=== PATIENT | male | born 1975 | race African-American/Black ===

== ENCOUNTER 2016-11-01 07:22 | Emergency (ER) | payer OTHER ==
[~2016-11-01] VITALS: Ht 193 cm; Wt 112.9 kg
[~2016-11-01 07:22] MED LIST: ABILIFY5 M1 PO; CARVEDILOL6.25 M1 PO; COR3 PO; DILANTIN100 MG PO; LASIX40 MG PO; LIPI20 PO; LISINOPRIL20 MG PO; LOV40I SQ; METFORMIN ER500 M1 PO; MOTRIN800 MG; POTASSIUM CHLO20 ME1 PO; PRO30 PO; SEROQUEL XR400 M1 PO; SEROQUEL200 MG PO; XAN5 PO; XARELTO10 M1 PO
[2016-11-01 08:02] VITALS: BP 134/100
[2016-11-01 08:37] LABS: CALCIUM 8.7 mg/dL (8.5-10.1); CARBON DIOXIDE 28.8 mmol/L (21-32); CREATININE SERUM 1.4 mg/dL (0.7-1.3); POTASSIUM SERUM 4.3 mmol/L (3.5-5.1)
[2016-11-01 08:42] LABS: ALBUMIN 3.6 g/dL (3.4-5.0); BILIRUBIN TOTAL 0.21 mg/dL (0.20-1.00); TOTAL PROTEIN, SERUM 7.7 g/dL (6.4-8.2)
[2016-11-01 08:46] LABS: BASOPHIL % 0.4 % (0-2); PLATELET COUNT 171 x10^3mcL (130-400)
== END 2016-11-01 08:58 | disposition left against medical advice (07) ==
LOC: ED 07:22
PROVIDERS: Emergency Medicine
DX: I82.411 Acute embolism and thrombosis of right femoral vein (principal); E11.9 Type 2 diabetes mellitus without complications; E78.5 Hyperlipidemia, unspecified; I11.0 Hypertensive heart disease with heart failure; I50.9 Heart failure, unspecified; J45.909 Unspecified asthma, uncomplicated; F20.9 Schizophrenia, unspecified; D57.1 Sickle-cell disease without crisis; I25.10 Atherosclerotic heart disease of native coronary artery without angina pectoris; F17.210 Nicotine dependence, cigarettes, uncomplicated; Z88.0 Allergy status to penicillin; Z88.6 Allergy status to analgesic agent; Z88.8 Allergy status to other drugs, medicaments and biological substances
CPT/HCPCS: Q0092

== ENCOUNTER 2016-11-20 00:14 | Inpatient (IN) | payer OTHER ==
[~2016-11-20] VITALS: Ht 193 cm; Wt 114.8 kg
[2016-11-20] VITALS (7 sets, daily range): BP systolic 105–130; BP diastolic 74–92; Ht 193 cm; Wt 114.8 kg
--- NOTE | 2016-11-20 00:40 | NUR ---
PT CAME TO ED TODAY W/ COMPLAINT OF BLOOD IN STOOL AND VOMIT. PT STATES THAT HE WAS WALKING FROM [place] TO [place] AND BEGAN TO HAVE ABDOMINAL PAIN. HE HAD ONE BOWEL MOVEMENT THAT HAD BRIGHT RED BLOOD PRESENT. HE THEN CONTINUED WALKING, AND HAD TO STOP AGAIN AND HAD ANOTHER BOWEL MOVEMENT W/ BRIGHT RED BLOOD PRESENT WELL ONE EPISODE OF VOMITING W/ A SMALL AMOUNT ("LESS THAN A TEASPOON") OF BLOOD PRESENT. PT DENIES ANY DIZZINESS, CHEST PAIN, OR SOB. PT IS A&O X 4, BREATHING EVEN AN DUNLABORED, WITH NO VISUAL SIGNS OF ACUTE OR RESP DISTRESS NOTED. MSE COMPLETED BY DR JENSEN.
--- NOTE | 2016-11-20 00:43 | NUR ---
RADIOLOGY AT BEDSIDE FOR CXR.
--- NOTE | 2016-11-20 00:49 | NUR ---
LAB AT BEDSIDE FOR BLOOD DRAW.
--- NOTE | 2016-11-20 00:54 | NUR ---
RECTAL EXAM COMPLETED BY DR JENSEN. GUIAC TRACE POSITIVE.
[2016-11-20 01:15] LABS: BASOPHIL % 0.5 % (0-2); PLATELET COUNT 170 x10^3mcL (130-400)
--- NOTE | 2016-11-20 01:15 | NUR ---
REPORT GIVEN TO CONCHIS Greene RN, AND CARE ENDORSED FOR THIS PT.
[2016-11-20 01:20] LABS: RED CELL DISTRIBUTION WIDTH 19.7 % (11.5-14.5)
[2016-11-20 01:28] LABS: CARBON DIOXIDE 28.3 mmol/L (21-32); CHLORIDE SERUM 110 mmol/L (98-107); CREATININE SERUM 1.1 mg/dL (0.7-1.3); GFR1 > 60 mL/min; GLUCOSE SERUM 96 mg/dL (74-106); POTASSIUM SERUM 4.3 mmol/L (3.5-5.1); SODIUM SERUM 143 mmol/L (136-145)
[2016-11-20 01:32] LABS: ALKALINE PHOSPHATASE 90 U/L (46-116); ALT/SGPT 23 U/L (16-63); AST/SGOT 24 U/L (15-37); BILIRUBIN TOTAL 0.22 mg/dL (0.20-1.00); TOTAL PROTEIN, SERUM 6.7 g/dL (6.4-8.2)
[2016-11-20 01:37] LABS: ALBUMIN 3.2 g/dL (3.4-5.0)
--- NOTE | 2016-11-20 01:51 | NUR ---
US EXAM IN PROGRESS AT BEDSIDE
--- NOTE | 2016-11-20 02:03 | NUR ---
ATTEMPTS AT IV UNSUCCESSFUL. CHAPARRITA ROJAS AT BEDSIDE FOR IV ADMINISTRATION.
--- NOTE | 2016-11-20 02:06 | NUR ---
PT MEDICATED WITH PROTONIX IVP PER ORDER. PLEASE SEE EMAR.
[2016-11-20] MEDS ORDERED: SEROQUEL XR200 M1 PO (02:25)
--- NOTE | 2016-11-20 02:29 | NUR ---
MRSA SWAB OBTAINED AND SENT TO LAB
--- NOTE | 2016-11-20 02:48 | NUR ---
PT MEDICATED WITH MORPHINE AND ZOFRAN PER ORDER. PLEASE SEE EMAR.
--- NOTE | 2016-11-20 03:01 | NUR ---
REPORT CALLED TO SOHAIL ROJAS TO ASSUME CARE OF PT ON TELE.
[2016-11-20] MEDS ORDERED: CLOPIDOGREL75 M1 PO (03:14)
--- NOTE | 2016-11-20 03:23 | NUR ---
PT TRANSFERRED TO TELE
--- NOTE | 2016-11-20 04:00 | NUR ---
CARE ENDORSED TO SOHAIL ROJAS. ALL QUESTIONS AND CONCERNS ADDRESSED. PT ORIENTED TO ROOM AND SURROUNDINGS. CALL LIGHT WITHIN REACH, BED IN LOW POSITION. WILL CONTINUE TO MONITOR
[2016-11-20 04:06] LABS: CHOLESTEROL/HDL RATIO 3.3
--- NOTE | 2016-11-20 04:30 | NUR ---
RECEIVED PT IN BED, PT IS ORIENTED X3. SPEECH CLEAR. PT DOES NOT WANT TO BE BOTHERED AT THIS TIME. SEIZURE PRECAUTIONS ENFORCED. ISOLATION PRECAUTIONS ENFORCED FOR HISTORY OF MRSA. INSTRUCTED PT TO USE CALL LIGHT WHICH IS WITHIN REACH. BED IS IN LOWEST POSITION. WILL CONTINUE TO MONITOR CLOSELY.
[2016-11-20 04:31] LABS: FREE T4 0.93 ng/dL (0.76-1.46); FREE THYROXINE INDEX 1.9 ug/dL (1.4-4.5)
[2016-11-20 04:38] LABS: T3 TOTAL 1.15 ng/mL
--- NOTE | 2016-11-20 06:28 | NUR ---
FSBS IS 85. UNABLE TO FLUSH IV ACCESS, ATTEMPTING NEW IV PLACEMENT AT THIS TIME.
--- NOTE | 2016-11-20 06:36 | NUR ---
NEW IV TO LEFT HAND, MORPHINE GIVEN AT THIS TIME FOR 10/10 PAIN TO MID ABD. IV IS HL FOR NOW PER ORDERS. WILL ENDORSE TO INCOMING SHIFT.
--- NOTE | 2016-11-20 07:02 | NUR ---
RECEIVED REPORT FROM [facility] NURSE SAUCEDA AT THIS TIME. PATIENT RESTING IN BED, AWAKE. TELE #[address] ON ROOM AIR, NO DISTRESS NOTED. URINAL AT THE BEDSIDE. IV TO LEFT HAND SALINE LOCKED AT THIS TIME. DENIES PAIN. INSTRUCTED ON USE OF CALL LIGHT. WILL CONTINUE TO MONITOR.
--- NOTE | 2016-11-20 08:33 | NUR ---
ROUNDS MADE AT THIS TIME. DR. FRANCIS, RESIDENT TEAM, INSIDE SALES ASSISTANT, AND PRIMARY RN AT THE BEDSIDE. PLAN OF CARE IS DISCUSSED. QUESTIONS AND CONCERNS ADDRESSED. WILL CONTINUE TO MONITOR.
[2016-11-20 08:43] LABS: CALCIUM 8.3 mg/dL (8.5-10.1); CARBON DIOXIDE 30.6 mmol/L (21-32); CHLORIDE SERUM 110 mmol/L (98-107); CREATININE SERUM 1.2 mg/dL (0.7-1.3); GFR1 > 60 mL/min; GLUCOSE SERUM 126 mg/dL (74-106); POTASSIUM SERUM 3.8 mmol/L (3.5-5.1); SODIUM SERUM 144 mmol/L (136-145)
[2016-11-20 08:47] LABS: BASOPHIL % 0.6 % (0-2); PLATELET COUNT 178 x10^3mcL (130-400)
[2016-11-20 08:48] LABS: RED CELL DISTRIBUTION WIDTH 20.1 % (11.5-14.5)
--- NOTE | 2016-11-20 10:00 | NUR ---
NOTIFIED DR. JONES COREG 6.25 HELD HR [id number] AT THIS TIME.
--- NOTE | 2016-11-20 10:00 | NUR ---
PATIENT HAD MEDICATIONS AT THE BEDSIDE. TAKEN DOWN TO PHARMACY TO HOLD AT THIS TIME.
--- NOTE | 2016-11-20 10:20 | NUR ---
PATIENT HAD HOME MEDICATIONS AT THE BEDSIDE. MEDICATIONS TAKEN DOWN TO PHARMACY TO HOLD AT THIS TIME.
--- NOTE | 2016-11-20 18:20 | NUR ---
NOTIFIED DR. JONES GLUCMARCELO HELD DUE TO BLOOD GLUCOSE 82 AND ON A CLEAR LIQUID DIET.
--- NOTE | 2016-11-20 19:30 | NUR ---
RESUMED CARE FOR PT. RECEIVED REPORT FROM BOB GARCIA. REMINDED PT OF HIS PLAN OF CARE AND PREPARATIONS NEEDED FOR TOMORROW'S PROCEDURE. VERBALIZED UNDERSTANDING BUT INSISTING TO HAVE SPRITE AT THIS TIME. WILL HOLD PT NPO PAST MIDNIGHT. SAFETY MEASURES ENSURED. CALL LIGHT WITHIN REACH. WILL CONT TO MONITOR PT.
--- NOTE | 2016-11-20 19:53 | NUR ---
PT IS A/O X4, WITH FORGETFUL, ABLE TO TELL WHAT HE NEEDS. LUNG SOUND WHEEZING BILATERAL, NO COUGH, NO SOB, PT IS ON ROOM AIR, PO2 96%, PT IS ON TELE 19, SB, DENY ANY CHEST PAIN OR DISCOMFORT, BOWEL SOUND PRESENT ALL 4 QUADRANTS, NO DISTENTION, NO TENDER. PEDAL PULSE PRESENT BOTH FEET, NON PITTING EDEMA BLE, IV AT LEFT HAND, NO LEAKING, NO INFILTRATION. ALL ADLS ASSIST, ALL NEED MET, CALL LIGHT IN REACH, WILL CONTINUE TO MONITOR.
[2016-11-20 20:29] LABS: microscopic required? NO
[2016-11-20 20:36] LABS: urine erythrocyte NEGATIVE (NEGATIVE)
[2016-11-20 21:01] LABS: AMPHETAMINE QUAL UR NONE DETECTED (NEG <=1000)
--- NOTE | 2016-11-20 22:57 | NUR ---
INSTRUCT PT TO BE NPO AFTER MID NIGHT, PT START YELLING AND STATE HE KNOW THIS HE DOESN'T NEED ME TO TELL HIM WHAT TO DO. AND ALSO REQUEST FOR PAIN MEDICAITON. TELL THE PT HIS HEART RATE IS AT 50'S, AND IT'S TOO LOW TO GIVE MORHHINE AND HE IS ALLERGY TO TYLENOL SO CAN'T GIVE NORCO OR TYLENOL AT THIS TIME, AND ALSO TELL THE PT THAT I WILL CALL THE DOCTOR TO GET OTHER PAIN MEDICATIONS, BUT PT IS STARTING YELLING AND SAID " I CAN'T DEAL WITH MALE NURSE, GET OUT OF HERE, I WANT FEMALE NURSE", REPORT TO CHARGE NURSE, AND SWITCH PT WITH BOB PANTOJA, ALL REPORT TO GIVE SCARLETT.
--- NOTE | 2016-11-21 03:00 | NUR ---
PT REQUESTING OF SPRITE TO DRINK AND I'VE REMINDED HIM THAT HE CANNOT HAVE ANY ORAL INTAKE OF FOOD/WATER PAST MIDNIGHT DUE TO HIS EGD/COLONOSCOPY THIS MORNING. PT INSISTS FOR A DRINK AND SUNNY TOLD HIM THAT I CAN SPEAK WITH THE DR FOR AN ICE CHIP ORDER TO EASE HIS MOUTH DRYNESS. PT STATES "I WILL WALK OUT OF THIS HOSPITAL AND BUY MYSELF A SODA, I DON'T CARE". PT ASKS FOR HIS BELONGING BAG AND I CHECKED HIS BEDSIDE CABINET AND FOUND AN UNOPENED 1 LITER OF SODA THAT PT HAS ALSO SEEN. SUNNY REMINDED HIM AGAIN THAT HE'S NOTHING BY MOUTH PAST MIDNIGHT AND STATES "I DONT CARE, THAT SODA IS MINE, DONT TOUCH IT, IF IM THIRSTY I'LL DRINK IT.". PT REFUSES IVF WELL. DR CAMPO AWARE. WILL CONT TO MONITOR.
--- NOTE | 2016-11-21 05:30 | NUR ---
PT WAS IN NO ACUTE DISTRESS. PAIN MANAGEMENT ENFORCED. LAST BM WAS YELLOW WATERY STOOL. PT REFUSING HIS MORNING DOSE OF LACTULOSE. STILL REFUSING IVF. SAFETY MEASURES ENSURED. PAIN MANAGEMENT ENFORCED. CALL LIGHT WITHIN REACH.
[2016-11-21 06:19] VITALS: BP 124/88
--- NOTE | 2016-11-21 06:20 | NUR ---
LAB HAS NOTIFIED ME THAT THEY WERE NOT ABLE TO DRAW BLOOD FOR PT. 2 PERSONNEL HAVE TRIED AND FAILED TO GAIN ACCESS AND PT REFUSED FURTHER DRAWS. LAB PERSONNEL STATES THEY WILL TRY AGAIN LATER.
--- NOTE | 2016-11-21 07:49 | NUR ---
CAME IN WITH JUANIS ROJAS FOR MORNING REPORT AT 0715. PT WAS AAO TIMES 4. IV SITE TO LEFT HAND. TELE # 19 SB T SR. LUNGS CLEAR BUT DIMINISHED BILATERAL. O2 SAT ON RA 99%. BS'S ACTIVE TIMES 4. GARVEY STRONG. PERIPHERAL PULSES PALPABLE. NO EDEMA. PT C/O THIRST, SAYS HE WILL DRINK HIS SODA IN THE BEDSTAND IF HE WANTS TO. HE JUST CAME UP TO THE NURSES STATION NOW, ANGRY BECAUSE HE IS THIRSTY AND HUNGRY.
--- NOTE | 2016-11-21 09:49 | NUR ---
PT CAME BACK AT 0940 WITH TRANSPORTER TO ROOM 260 B. HE DEMANDED FOOD RIGHT NOW. HIS REG DIET WAS ORDERED FOR LUNCH, BUT HE DEMANDED TO EAT RIGHT NOW. A SANDWICH AND APPLE JUICE WAS OBTAINED FOR HIM.
--- NOTE | 2016-11-21 10:52 | NUR ---
PT ANGRY BECAUSE HE DIDNT GET A BREAKFAST TRAY. HE DID GET 2 SANDWICHES AND AN APPLE JUICE AND ATE THEM. NOW HES ANGRY BECAUSE HE SAID HE DIDNT EAT. HE WANTS TO TALK TO ARCHITECTURAL DESIGN LECTURER. HE CALLED HIS FAMILY AND TOLD THEM TO COME GET HIM AND BRING A [employer] SUPERINTENDENT. ARCHITECTURAL DESIGN LECTURER WAS CALLED BUT THEY ARENT ANSWERING THEIR PHONE. HE WANTED HIS IV HL'D AND NO IV FLUID, I DID THIS.
[2016-11-21 12:09] VITALS: BP 120/72
[2016-11-21] MEDS ORDERED: METAMUCIL0.52 GM PO (12:19)
[2016-11-21] MEDS ORDERED: HIBICLENS118 ML TOP (12:44)
[2016-11-21] MEDS ORDERED: BACO TOP (12:44)
--- NOTE | 2016-11-21 12:46 | NUR ---
DC'D SL TO HAND AND LEFT FOOT, ANGIO INTACT. GAVE PT DISCHARGE INSTRUCTIONS AND PRESCRIPTION. PT VERBALIZED "I UNDERSTAND" TO ALL INSTRUCTIONS. HE WENT TO DISCHARGE OFFICE.
== END 2016-11-21 12:42 | disposition home or self-care (01) | DRG 393 ==
LOC: ED 00:14 → DU 02:39 → MU 11-21 11:56
PROVIDERS: Internal Medicine Gastroenterology; Specialist; ADMIT Family Medicine
PROC: 0DJD8ZZ Inspection of Lower Intestinal Tract, Via Natural or Artificial Opening Endoscopic (ICD-10-PCS; principal; 2016-11-21 08:00)
DX: K64.8 Other hemorrhoids (principal); N17.0 Acute kidney failure with tubular necrosis; I50.43 Acute on chronic combined systolic (congestive) and diastolic (congestive) heart failure; D62 Acute posthemorrhagic anemia; D68.69 Other thrombophilia; E44.1 Mild protein-calorie malnutrition; I13.0 Hypertensive heart and chronic kidney disease with heart failure and stage 1 through stage 4 chronic kidney disease, or unspecified chronic kidney disease; I16.0 Hypertensive urgency; E11.9 Type 2 diabetes mellitus without complications; N18.9 Chronic kidney disease, unspecified; D57.1 Sickle-cell disease without crisis; G40.909 Epilepsy, unspecified, not intractable, without status epilepticus; J45.909 Unspecified asthma, uncomplicated; F20.9 Schizophrenia, unspecified; F32.9 Major depressive disorder, single episode, unspecified; Z68.30 Body mass index [BMI] 30.0-30.9, adult; F17.210 Nicotine dependence, cigarettes, uncomplicated; Z86.718 Personal history of other venous thrombosis and embolism; Z79.84 Long term (current) use of oral hypoglycemic drugs
CPT/HCPCS: 43235; 45378; 80307; 82962; 83880; 84439; C9113; G0480; J1200; J1610; J2060; J2250; J2270; J2310; J2405; J3010; J3360; J3490; J7613; J7620; J7633; Q0092

== ENCOUNTER 2017-02-10 19:43 | Emergency (ER) | payer OTHER ==
[~2017-02-10] VITALS: Ht 193 cm; Wt 119.7 kg
[~2017-02-10 19:43] MED LIST changes: +BACO TOP; +CLOPIDOGREL75 M1 PO; +HIBICLENS118 ML TOP; +METAMUCIL0.52 GM PO; +SEROQUEL XR200 M1 PO
[2017-02-10 21:16] LABS: BASOPHIL % 0.4 % (0-2); PLATELET COUNT 145 x10^3mcL (130-400)
[2017-02-10 21:17] LABS: RED CELL DISTRIBUTION WIDTH 19.4 % (11.5-14.5)
[2017-02-10 21:30] LABS: CALCIUM 8.5 mg/dL (8.5-10.1); CARBON DIOXIDE 29.7 mmol/L (21-32); CHLORIDE SERUM 104 mmol/L (98-107); CREATININE SERUM 1.1 mg/dL (0.7-1.3); GFR1 > 60 mL/min; GLUCOSE SERUM 131 mg/dL (74-106); POTASSIUM SERUM 4.4 mmol/L (3.5-5.1); SODIUM SERUM 140 mmol/L (136-145)
[2017-02-10 21:34] LABS: ALBUMIN 3.5 g/dL (3.4-5.0); ALKALINE PHOSPHATASE 127 U/L (46-116); ALT/SGPT 10 U/L (16-63); AST/SGOT 23 U/L (15-37); BILIRUBIN TOTAL 0.2 mg/dL (0.20-1.00); TOTAL PROTEIN, SERUM 7.3 g/dL (6.4-8.2)
[2017-02-10 21:39] LABS: UA SPECIFIC GRAVITY 1.015 (1.005-1.035); microscopic required? YES; urine erythrocyte TRACE (NEGATIVE)
[2017-02-10 22:00] VITALS: BP 126/63
== END 2017-02-10 22:01 | disposition home or self-care (01) ==
LOC: ED 19:43
PROVIDERS: Emergency Medicine
DX: R10.9 Unspecified abdominal pain (principal); R60.0 Localized edema
CPT/HCPCS: 36415; 83880; Q0092

== ENCOUNTER 2017-03-02 05:13 | Inpatient (IN) | payer OTHER ==
[~2017-03-02] VITALS: Ht 193 cm; Wt 124.3 kg
[2017-03-02 07:16] LABS: BASOPHIL % 0.6 % (0-2); PLATELET COUNT 188 x10^3mcL (130-400)
[2017-03-02 07:22] LABS: RED CELL DISTRIBUTION WIDTH 19.6 % (11.5-14.5)
[2017-03-02 07:31] LABS: CALCIUM 8.5 mg/dL (8.5-10.1); CARBON DIOXIDE 26.9 mmol/L (21-32); CHLORIDE SERUM 107 mmol/L (98-107); CREATININE SERUM 1.2 mg/dL (0.7-1.3); GFR1 > 60 mL/min; GLUCOSE SERUM 97 mg/dL (74-106); POTASSIUM SERUM 4.3 mmol/L (3.5-5.1); SODIUM SERUM 143 mmol/L (136-145)
[2017-03-02 07:33] LABS: ALKALINE PHOSPHATASE 94 U/L (46-116); ALT/SGPT 27 U/L (16-63); AST/SGOT 17 U/L (15-37); BILIRUBIN TOTAL 0.2 mg/dL (0.20-1.00); CHOLESTEROL 193 mg/dL (<200); CHOLESTEROL/HDL RATIO 3.6; HDL CHOLESTEROL 54 mg/dL (40-60); LIPASE 162 IU/L (73-393); TOTAL PROTEIN, SERUM 6.8 g/dL (6.4-8.2); TRIGLYCERIDES 89 mg/dL (<150)
[2017-03-02 08:11] LABS: FREE T4 0.81 ng/dL (0.76-1.46); FREE THYROXINE INDEX 1.8 ug/dL (1.4-4.5); T4(THYROXINE) 5.5 ug/dL (4.7-13.3)
[2017-03-02 11:38] VITALS: BP 155/78
[2017-03-02 12:56] LABS: MAGNESIUM 1.4 mg/dL (1.8-2.4); PHOSPHOROUS 3.1 mg/dL (2.5-4.9)
[2017-03-02 13:15] LABS: T3 TOTAL 1.02 ng/mL
[2017-03-02 15:26] LABS: microscopic required? NO
[2017-03-02 15:30] LABS: urine erythrocyte NEGATIVE (NEGATIVE)
[2017-03-02 15:39] LABS: AMPHETAMINE QUAL UR NONE DETECTED (NEG <=1000)
[2017-03-02 16:15] VITALS: BP 98/52
[2017-03-02 22:10] VITALS: BP 126/72
[2017-03-03 06:08] VITALS: BP 127/94
[2017-03-03 08:00] VITALS: BP 119/76
[2017-03-03] MEDS ORDERED: XARELTO15 M1 PO (10:57)
[2017-03-03 11:19] VITALS: BP 117/76
== END 2017-03-03 11:25 | disposition home or self-care (01) | DRG 176 ==
LOC: ED 05:13 → DU 07:53
PROVIDERS: Specialist; ADMIT Student in an Organized Health Care Education/Training Program
DX: I26.99 Other pulmonary embolism without acute cor pulmonale (principal); E44.0 Moderate protein-calorie malnutrition; I82.431 Acute embolism and thrombosis of right popliteal vein; C61 Malignant neoplasm of prostate; E83.42 Hypomagnesemia; G40.909 Epilepsy, unspecified, not intractable, without status epilepticus; F20.9 Schizophrenia, unspecified; E78.5 Hyperlipidemia, unspecified; I25.10 Atherosclerotic heart disease of native coronary artery without angina pectoris; I25.2 Old myocardial infarction; E66.9 Obesity, unspecified; Z68.33 Body mass index [BMI] 33.0-33.9, adult; Z95.828 Presence of other vascular implants and grafts; Z91.19 Patient's noncompliance with other medical treatment and regimen
CPT/HCPCS: 83880; 84439; J1170; J1200; J1642; J1644; J2270; J2405; J7030; J7620; Q0092

== ENCOUNTER 2017-07-24 23:11 | Emergency (ER) | payer OTHER ==
[~2017-07-24 23:11] MED LIST changes: +XARELTO15 M1 PO
[2017-07-25 00:13] LABS: PLATELET COUNT 197 x10^3mcL (130-400)
[2017-07-25 00:18] LABS: RED CELL DISTRIBUTION WIDTH 18.4 % (11.5-14.5)
[2017-07-25 00:20] LABS: CALCIUM 8.3 mg/dL (8.5-10.1); CARBON DIOXIDE 32.1 mmol/L (21-32); CREATININE SERUM 1.4 mg/dL (0.7-1.3); POTASSIUM SERUM 3.8 mmol/L (3.5-5.1)
[2017-07-25 00:28] LABS: BILIRUBIN TOTAL 0.2 mg/dL (0.20-1.00)
[2017-07-25 00:30] LABS: ALBUMIN 3.2 g/dL (3.4-5.0)
[2017-07-25 02:15] VITALS: BP 127/72
== END 2017-07-25 02:15 | disposition home or self-care (01) ==
LOC: ED 23:11
PROVIDERS: Emergency Medicine
DX: K92.0 Hematemesis (principal); K62.5 Hemorrhage of anus and rectum; E11.9 Type 2 diabetes mellitus without complications; E78.00 Pure hypercholesterolemia, unspecified; I11.0 Hypertensive heart disease with heart failure; I50.9 Heart failure, unspecified; J45.909 Unspecified asthma, uncomplicated; R10.30 Lower abdominal pain, unspecified; F17.210 Nicotine dependence, cigarettes, uncomplicated; Z88.0 Allergy status to penicillin; Z88.6 Allergy status to analgesic agent; Z88.8 Allergy status to other drugs, medicaments and biological substances; Z86.73 Personal history of transient ischemic attack (TIA), and cerebral infarction without residual deficits; Z79.84 Long term (current) use of oral hypoglycemic drugs; Z79.899 Other long term (current) drug therapy; Z86.718 Personal history of other venous thrombosis and embolism
CPT/HCPCS: 36415

== ENCOUNTER 2020-07-24 13:00 | Emergency (ER) | payer BC, OTHER ==
[~2020-07-24] VITALS: Ht 193 cm; Wt 120.2 kg
[2020-07-24 13:07] VITALS: BP 142/94; Ht 193 cm; Wt 120.2 kg
== END 2020-07-24 15:28 | disposition left against medical advice (07) ==
LOC: ED 13:00
DX: Z53.21 Procedure and treatment not carried out due to patient leaving prior to being seen by health care provider (principal)
CPT/HCPCS: 83880